=== PATIENT | male | born 1950 | race Caucasian/White ===

== ENCOUNTER → 2016-12-28 | Outpatient (CLI) | payer OTHER, BC ==
[~2016-12-28] VITALS: Ht 182.9 cm; Wt 115.7 kg
[~2016-12-28] MED LIST: ALLERGY RELIE15.8 ML BOTH NARES; AMOX TR-K CLV1 EAC4 PO; ATROVENT 00.5 MG/2.5 IH; BROVANA15 MCG/2 M IH; CLARITIN,ALAVAR10 MG PO; PREDNISONE20 MG PO; PROBIOTIC1 EAC7 PO; PULMICORT FLEX90 MCG IH; SINGULAIR10 MG PO; THEOCHRON300 MG PO
== END | disposition home or self-care (01) ==
LOC: AMB 11:27
DX: Z12.11 Encounter for screening for malignant neoplasm of colon (principal); Z09 Encounter for follow-up examination after completed treatment for conditions other than malignant neoplasm; Z86.010 Personal history of colon polyps; D12.0 Benign neoplasm of cecum; D12.3 Benign neoplasm of transverse colon; K63.5 Polyp of colon; D12.5 Benign neoplasm of sigmoid colon; K57.30 Diverticulosis of large intestine without perforation or abscess without bleeding; K64.8 Other hemorrhoids; Z87.891 Personal history of nicotine dependence; Z68.35 Body mass index [BMI] 35.0-35.9, adult
CPT/HCPCS: 88305; J2250